=== PATIENT | male | born 1995 | race Hispanic/Latino ===

== ENCOUNTER 2018-12-13 16:28 | Inpatient (IN) | payer BC, OTHER ==
[~2018-12-13] VITALS: Ht 182.9 cm; Wt 119.7 kg
[2018-12-13] MEDS ORDERED: ONDANSETRON HCL 4 MG/2 ML VIAL ONE (18:05)
[2018-12-13] MEDS ORDERED: SODIUM CHLORIDE 0.9% 1000ML 2,000 ML IV ONE ×2 (18:06→19:43)
[2018-12-13 18:15] LABS: BASOPHILS % (AUTO) 0.3 % (0.0-5.0); EOSINOPHILS % (AUTO) 0.1 % (0.0-8.0); HEMATOCRIT 53.2 % (42-54); LYMPHOCYTES % (AUTO) 11.9 % (21.0-51.0); MEAN CORPUSCULAR HEMOGLOBIN 29.7 pg (27.0-33.0); MEAN CORPUSCULAR HGB CONC 33.8 g/dL (32.0-36.0); MONOCYTES % (AUTO) 5.1 % (3.0-13.0); NEUTROPHILS % (AUTO) 82.6 % (40.0-77.0); NUCLEATED RED BLOOD CELLS 0.1 % (0.0-0.19); PLATELET COUNT (AUTO) 225 K/uL (130-400); RED BLOOD CELL COUNT(AUTO) 6.05 MIL/uL (4.50-6.20); RED CELL DISTRIBUTION WIDTH 13.7 % (11.0-15.5); WHITE BLOOD COUNT (AUTO) 16.8 K/uL (4.8-10.8)
[2018-12-13 18:36] LABS: CREATININE 0.7 mg/dL (0.5-1.5); POTASSIUM 4.7 mmol/L (3.5-5.1)
[2018-12-13 18:40] LABS: ALBUMIN 4.2 g/dL (3.5-5.0); BILIRUBIN,TOTAL 0.6 mg/dL (0.2-1.0); TOTAL PROTEIN, SERUM 8.6 g/dL (6.0-8.3)
[2018-12-13 19:19] LABS: ABG BASE EXCESS -25.2 mmol/L (-2.0-3.0); ABG HCO3 4.5 mmol/L (21.0-28.0); ABG OXYGEN SATURATION 96.7 % (95.0-99.0); ABG PCO2 19 mmHg (35-48)
[2018-12-13 19:48] LABS: APPEARANCE,URINE Clear (CLEAR); BILIRUBIN,URINE Negative (NEGATIVE); COLOR,URINE Yellow (YELLOW); GLUCOSE, URINE (UA) >=1000 mg/dL (NEGATIVE); KETONES,URINE >=160 mg/dL (NEGATIVE); LEUKOCYTE ESTERASE ,URINE Negative (NEGATIVE); NITRATE,URINE Negative (NEGATIVE); OCCULT BLOOD,URINE Negative (NEGATIVE); PROTEIN,URINE POS 1+ mg/dL (NEGATIVE); UROBILINOGEN,URINE 0.2 mg/dL (0.2-1.0)
[2018-12-13] MEDS ORDERED: SODIUM BICARB [NEONATAL] 4.2% 10ML SYG ONE (19:58)
[2018-12-13 20:08] LABS: AMORPHOUS SEDIMENT,UR Few /LPF (None Seen); BACTERIA,URINE None Seen /HPF (None Seen); MUCUS,URINE Few LPF (None Seen); RBC,URINE 0-1 /HPF (0-1); SQUAMOUS EPITHELIAL CELL,UR 0-2 /HPF (0-2); WBC,URINE 0-1 /HPF (0-1)
[2018-12-13] MEDS ORDERED: SODIUM BICARB 8.4% 50ML SYRING 150 MEQ in DEXTROSE 5%-WATER 1,000 ML IV SCH (20:15)
[2018-12-13 20:31] LABS: ACETAMINOPHEN < 1 mcg/mL (10-29)
[2018-12-13 21:02] LABS: AMPHET/METH SCREEN,URINE NEGATIVE (NEGATIVE); BARBITURATE SCREEN, URINE NEGATIVE (NEGATIVE); BENZODIAZEPINES SCREEN,URINE NEGATIVE (NEGATIVE); CANNABINOID SCREEN,URINE NEGATIVE (NEGATIVE); COCAINE SCREEN,URINE NEGATIVE (NEGATIVE); OPIATE SCREEN,URINE NEGATIVE (NEGATIVE); PHENCYCLIDINE SCREEN,URINE NEGATIVE (NEGATIVE)
[2018-12-13] MEDS ORDERED: ZOSYN 3.375GM+NS 50ML 50 ML IV ONE (21:35)
[2018-12-13 22:07] LABS: CREATINE KINASE, TOTAL 36 U/L (21-232); MYOGLOBIN 16 ng/mL (10-92); TROPONIN I < 0.04 ng/mL (0.00-0.06)
[2018-12-13] MEDS ORDERED: MORPHINE SULFATE 2 MG/ML 1ML SYG IVP PRN (23:45)
[2018-12-13] MEDS ORDERED: GLUCAGON 1MG KIT 1 MG ML IM PRN (23:45)
[2018-12-13] MEDS ORDERED: DEXTROSE 50%-WATER 50 ML DISP.SYRIN IV PRN (23:45)
[2018-12-14] VITALS (19 sets, daily range): BP systolic 89–150; BP diastolic 37–99
[2018-12-14] MEDS ORDERED: INSULIN R NPO SSI SQ SCH
[2018-12-14] MEDS ORDERED: DAPA10TA PO (00:35)
[2018-12-14] MEDS ORDERED: METF-446 PO (00:35)
[2018-12-14] MEDS ORDERED: LOSA1TAB37 PO (00:35)
[2018-12-14] MEDS ORDERED: LEVO25TA54 PO (00:37)
[2018-12-14] MEDS ORDERED: AMIT25TA9 PO (00:39)
--- NOTE | 2018-12-14 01:40 | NUR ---
Daniel Paged Prasanna Fuchs from [facility] due to patient's sinus tachycardia of 140 and complaining of chest pain. Pending call back.
[2018-12-14] MEDS ORDERED: LACTATED RINGERS 1000ML 1,000 ML IV ONE ×2 (02:28→05:12)
--- NOTE | 2018-12-14 02:40 | NUR ---
Paged Prasanna Fuchs paged again due to supraventricular tachycardia in the 150's. He ordered ABG's. At 03:00 I called him to let him know the results. He ordered 2 Ampules of Sodium Bicarbinate, 1 liter bolus of NS, and to transfer the patient to the ICU.
[2018-12-14 02:45] LABS: ABG BASE EXCESS -26.7 mmol/L (-2.0-3.0); ABG HCO3 3.5 mmol/L (21.0-28.0); ABG OXYGEN SATURATION 97.8 % (95.0-99.0); ABG PCO2 < 17 mmHg (35-48)
[2018-12-14] MEDS ORDERED: SODIUM BICARB 50MEQ 50ML VIAL IV STA (03:00)
[2018-12-14] MEDS: SODIUM BICARB 50MEQ 50ML VIAL ONE ×2 (03:10→04:12)
--- NOTE | 2018-12-14 03:20 | NUR ---
report given to ICU nurse. patient moved to room 208 to continue care.
--- NOTE | 2018-12-14 03:26 | NUR ---
at 0326, I gave 2 ampules of sodium bicarbonate before I transferred the patient to ICU. had problem scanning and scanned at a later time.
--- NOTE | 2018-12-14 04:00 | NUR ---
RECEIVED FROM 3RD FLOOR VIA HOSPITAL BED. LETHARGIC, BUT AWAKE AND ORIENTED X3. SOB NOTED WITH EXERTION. SODIUM BICARB DRIP AND LR BOLUS INFUSING. CONNECTED TO BEDSIDE MONITOR. SINUS TACHYCARDIA HR UP TO 140BPM. BLE'S WITH SCDS. INSTRUCTED ON PLAN OF CARE. PATIENT'S CELL PHONE ON BEDSIDE TABLE. FULL ASSESSMENT COMPLETED.
--- NOTE | 2018-12-14 05:01 | NUR ---
CALLED Audrey ALLEN TO REPORT ABG RESULTS ONCE AGAIN- DRAWN AT 0242 AND ALSO REPORTED BMP RESULTS AND URINE KETONES >160 AND BLOOD KETONES 6.7. RECEIVED ORDERS TO TREAT FOR DKA. PATIENT REPORTS FEELING VERY SICK AND ACHY ALL OVER. SOB NOTED WITH CONVERSATION. INSTRUCTED ON ENERGY CONSERVATION MEASURES.
[2018-12-14] MEDS: ZOSYN 3.375GM+NS 50ML 50 ML IV SCH ×3 (05:13→20:58)
[2018-12-14] MEDS ORDERED: LACTATED RINGERS 1000ML IV SCH (05:15)
[2018-12-14] MEDS ORDERED: PHARMACY COMMUNICATION MISC SCH ×4 (05:15→22:00)
[2018-12-14] MEDS ORDERED: DEXTROSE 5%-LACTATED RINGERS 1,000 ML IV SCH (05:15)
[2018-12-14 05:32] LABS: HEMATOCRIT 53.1 % (42-54); MEAN CORPUSCULAR HEMOGLOBIN 29.2 pg (27.0-33.0); MEAN CORPUSCULAR HGB CONC 33.1 g/dL (32.0-36.0); MEAN CORPUSCULAR VOLUME 88.3 fL (79-99); NUCLEATED RED BLOOD CELLS 0.1 % (0.0-0.19); PLATELET COUNT (AUTO) 191 K/uL (130-400); RED BLOOD CELL COUNT(AUTO) 6.02 MIL/uL (4.50-6.20); RED CELL DISTRIBUTION WIDTH 13.6 % (11.0-15.5); WHITE BLOOD COUNT (AUTO) 18.9 K/uL (4.8-10.8)
[2018-12-14 05:49] LABS: CREATININE 1.2 mg/dL (0.5-1.5); MAGNESIUM 1.8 mg/dL (1.80-2.40); PHOSPHORUS 3.6 mg/dL (2.5-4.9); POTASSIUM 3.6 mmol/L (3.5-5.1)
[2018-12-14 06:23] LABS: ABG BASE EXCESS -23.5 mmol/L (-2.0-3.0); ABG HCO3 4.7 mmol/L (21.0-28.0); ABG OXYGEN SATURATION 97.7 % (95.0-99.0); ABG PCO2 17 mmHg (35-48)
--- NOTE | 2018-12-14 06:37 | NUR ---
REPORTED AM LABS AND ABG RESULTS TO Audrey ALLEN FOR [facility] NO NEW ORDERS RECEIVED.
[2018-12-14] MEDS ORDERED: POTASSIUM CHLORIDE 10% ELIXIR 20 MEQ/15 ML UDCUP PO PRN (07:15)
[2018-12-14] MEDS ORDERED: LIDOCAINE HCL-MPF 1% 2ML VIAL IV PRN (07:15)
[2018-12-14] MEDS ORDERED: POTASSIUM CHLORIDE 20 MEQ ERTAB PO PRN (07:15)
[2018-12-14] MEDS ORDERED: D5W-1/2 NS/20MEQ KCL 1,000 ML IV SCH (07:45)
[2018-12-14] MEDS: SODIUM CHLORIDE 0.9% 1000ML 1,000 ML IV SCH ×4 (07:51→20:58)
[2018-12-14] MEDS: FAMOTIDINE/PF 20 MG/2 ML VIAL IV SCH ×2 (07:51→20:58)
[2018-12-14 12:53] LABS: CREATININE 1.3 mg/dL (0.5-1.5)
[2018-12-14] MEDS ORDERED: SODIUM BICARB 50MEQ 50ML VIAL ONE ×4 (13:01→19:28)
[2018-12-14] MEDS ORDERED: SODIUM BICARB 8.4% 50ML SYRING 150 MEQ in SODIUM CHLORIDE 0.9% 1000ML 1,000 ML IV SCH (13:15)
[2018-12-14 13:17] LABS: ABG BASE EXCESS -14.8 mmol/L (-2.0-3.0); ABG HCO3 8.4 mmol/L (21.0-28.0); ABG PCO2 17 mmHg (35-48)
[2018-12-14] MEDS ORDERED: SODIUM BICARB 50MEQ 50ML VIAL IV SCH ×2 (13:18→13:30)
[2018-12-14] MEDS ORDERED: LIDOCAINE HCL 1% 20 ML VIAL ONE (13:25)
--- NOTE | 2018-12-14 13:28 | NUR ---
D/C PLAN CM spoke to pts mother regarding d/c planning. Pt xochitl in procedure. Pt is ind. and lives with mother. Mother assists in care as needed. States pt is newly established with Dr. Magdi Villarreal. Reports pt was previously ind. with ADL's. Plan to home. CM to f/u. Addendum: 12/14/18 at 1329 by AKUA BENNETT CM Amended: Links added.
[2018-12-14] MEDS ORDERED: DEXTROSE 50%-WATER 25 GM/50 ML VIAL IV ONE (13:30)
[2018-12-14] MEDS ORDERED: DEXTROSE 10%-WATER 1,000 ML IV SCH (13:30)
[2018-12-14] MEDS ORDERED: DEXTROSE 50%-WATER 25 GM/50 ML VIAL ONE (13:33)
[2018-12-14] MEDS: ONDANSETRON HCL 4 MG/2 ML VIAL IVP PRN (13:43)
[2018-12-14 14:01] LABS: ABG HCO3 9.9 mmol/L (21.0-28.0); ABG OXYGEN SATURATION 97.3 % (95.0-99.0); ABG PCO2 18 mmHg (35-48)
[2018-12-14 15:03] LABS: ABG BASE EXCESS -14.4 mmol/L (-2.0-3.0); ABG HCO3 9.7 mmol/L (21.0-28.0); ABG OXYGEN SATURATION 97.3 % (95.0-99.0); ABG PCO2 21 mmHg (35-48)
[2018-12-14] MEDS ORDERED: MORPHINE SULFATE 2 MG/ML 1ML SYG IVP PRN (15:15)
[2018-12-14] MEDS ORDERED: SODIUM BICARB 50MEQ 50ML VIAL IV ONE (15:15)
[2018-12-14 15:57] LABS: ABG BASE EXCESS -4.5 mmol/L (-2.0-3.0); ABG HCO3 16.2 mmol/L (21.0-28.0); ABG OXYGEN SATURATION 98.4 % (95.0-99.0); ABG PCO2 21 mmHg (35-48)
[2018-12-14] MEDS ORDERED: FUROSEMIDE 10 MG/ML 2ML VIAL ONE (17:20)
[2018-12-14] MEDS ORDERED: MORPHINE SULFATE 2 MG/ML 1ML SYG IVP ONE (17:30)
[2018-12-14] MEDS ORDERED: FUROSEMIDE 10 MG/ML 4ML VIAL IV ONE (17:30)
[2018-12-14 17:32] LABS: MAGNESIUM 1.4 mg/dL (1.80-2.40); PHOSPHORUS 0.5 mg/dL (2.5-4.9)
[2018-12-14 17:34] LABS: POTASSIUM 1.8 mmol/L (3.5-5.1)
[2018-12-14] MEDS: POTASSIUM CHLORIDE 20MEQ/100ML 100 ML IV PRN ×7 (17:42→23:07)
[2018-12-14] MEDS: WATER IV SCH (19:01)
[2018-12-14] MEDS: DEXTROSE 10% IV SCH (19:01)
[2018-12-14] MEDS: POTASSIUM CHLORIDE IV SCH (19:01)
[2018-12-14] MEDS: INSULIN REGULAR, HUMAN 3ML 100 UNIT in SODIUM CHLORIDE 0.9% 99 ML IV PRN ×2 (19:06)
[2018-12-14 19:14] LABS: ABG BASE EXCESS -8.5 mmol/L (-2.0-3.0); ABG OXYGEN SATURATION 99.1 % (95.0-99.0); ABG PCO2 31 mmHg (35-48)
[2018-12-14] MEDS ORDERED: POTASSIUM PHOSPHATE 30 MMOL in SODIUM CHLORIDE 0.9% 250 ML IV SCH (19:15)
[2018-12-14 20:11] LABS: CREATININE 1.2 mg/dL (0.5-1.5); MAGNESIUM 2.6 mg/dL (1.80-2.40)
[2018-12-14 20:45] LABS: ABG BASE EXCESS -7.5 mmol/L (-2.0-3.0); ABG HCO3 16.8 mmol/L (21.0-28.0); ABG OXYGEN SATURATION 97.3 % (95.0-99.0); ABG PCO2 31 mmHg (35-48)
[2018-12-15] VITALS (24 sets, daily range): BP systolic 96–142; BP diastolic 61–84
[2018-12-15] MEDS: POTASSIUM CHLORIDE 20MEQ/100ML 100 ML IV PRN ×16 (00:22→23:19)
[2018-12-15 00:37] LABS: CREATININE 1.1 mg/dL (0.5-1.5); MAGNESIUM 2.4 mg/dL (1.80-2.40); PHOSPHORUS 1.3 mg/dL (2.5-4.9)
--- NOTE | 2018-12-15 00:37 | NUR ---
CONTINUES ON CPAP FOR SOB & TACHYPNEA. FREQUENTLY REQUESTS WATER. INSTRUCTED HIM & HIS MOTHER ON HIGH RISK OF ASPIRATION & RELATED COMPLICATIONS D/T DYSPNEA & TACHYPNEA. PT CONTINUES TO REQUEST WATER. PROVIDED WITH 4OZ OF WATER AND REPLACED CPAP. Addendum: 12/15/18 at 0040 by MARIA C ALFONSO RN RN Amended: Links added.
[2018-12-15 00:43] LABS: POTASSIUM 2.6 mmol/L (3.5-5.1)
[2018-12-15] MEDS: WATER IV SCH ×3 (03:54→23:19)
[2018-12-15] MEDS: DEXTROSE 10% IV SCH ×3 (03:54→23:19)
[2018-12-15] MEDS: POTASSIUM CHLORIDE IV SCH ×3 (03:54→23:19)
[2018-12-15 04:29] LABS: CREATININE 1.2 mg/dL (0.5-1.5); MAGNESIUM 2.4 mg/dL (1.80-2.40); PHOSPHORUS 1.3 mg/dL (2.5-4.9); POTASSIUM 3.2 mmol/L (3.5-5.1)
[2018-12-15] MEDS: ZOSYN 3.375GM+NS 50ML 50 ML IV SCH ×3 (04:50→21:03)
[2018-12-15] MEDS ORDERED: PHARMACY COMMUNICATION MISC SCH ×2 (07:00→07:15)
[2018-12-15] MEDS: SODIUM CHLORIDE 0.9% 1000ML 1,000 ML IV SCH ×2 (07:18→16:45)
[2018-12-15 07:33] LABS: ABG BASE EXCESS -11.2 mmol/L (-2.0-3.0); ABG HCO3 14.6 mmol/L (21.0-28.0); ABG OXYGEN SATURATION 98.2 % (95.0-99.0); ABG PCO2 33 mmHg (35-48)
[2018-12-15] MEDS: POTASSIUM PHOS 15 mMOL+NS250ML 250 ML IV PRN (07:38)
[2018-12-15 08:38] LABS: CREATININE 1.2 mg/dL (0.5-1.5); MAGNESIUM 2.4 mg/dL (1.80-2.40); PHOSPHORUS 1.1 mg/dL (2.5-4.9); POTASSIUM 3.5 mmol/L (3.5-5.1)
[2018-12-15] MEDS: FAMOTIDINE/PF 20 MG/2 ML VIAL IV SCH ×2 (09:22→20:09)
[2018-12-15] MEDS ORDERED: POTASSIUM PHOSPHATE 30 MMOL in SODIUM CHLORIDE 0.9% 250 ML IV SCH (09:30)
[2018-12-15] MEDS: ONDANSETRON HCL 4 MG/2 ML VIAL IVP PRN ×2 (09:40→18:33)
[2018-12-15] MEDS: MORPHINE SULFATE 2 MG/ML 1ML SYG IVP PRN ×2 (09:41→18:28)
[2018-12-15] MEDS: ACETAMINOPHEN 325 MG TAB PO PRN (11:45)
[2018-12-15 12:37] LABS: MAGNESIUM 2.1 mg/dL (1.80-2.40); PHOSPHORUS 1.5 mg/dL (2.5-4.9); POTASSIUM 3.8 mmol/L (3.5-5.1)
[2018-12-15 14:32] LABS: INR 0.97 (0.85-1.15); PARTIAL THROMBOPLASTIN TIME 25.9 SEC (26.3-35.5); PROTHROMBIN TIME 10.2 SEC (9.6-11.6)
[2018-12-15 16:43] LABS: MAGNESIUM 2.1 mg/dL (1.80-2.40); PHOSPHORUS 2.9 mg/dL (2.5-4.9); POTASSIUM 3.6 mmol/L (3.5-5.1)
--- NOTE | 2018-12-15 19:30 | NUR ---
ASSESSMENT PT RESTING IN BED, IV FLUIDS INFUSING WITHOUT DIFFICULTY. MOTHER AT BEDSIDE. DKA PROTOCOL, BLOOD SUGARS Q1H, SEE FLOW SHEET. ASSESSMENT COMPLETED, SEE FLOW SHEET. BRAXTON MICHELLE TO BSD. VILLAGOMEZ REVIEWED AND WITHIN REACH. WHITE BOARD UP-DATED.
[2018-12-15 20:33] LABS: POTASSIUM 3.7 mmol/L (3.5-5.1)
[2018-12-15 20:48] LABS: BASOPHILS % (AUTO) 0.3 % (0.0-5.0); EOSINOPHILS % (AUTO) 0.1 % (0.0-8.0); HEMATOCRIT 42.2 % (42-54); MEAN CORPUSCULAR HEMOGLOBIN 29.1 pg (27.0-33.0); MEAN CORPUSCULAR HGB CONC 33.9 g/dL (32.0-36.0); MEAN CORPUSCULAR VOLUME 85.8 fL (79-99); MONOCYTES % (AUTO) 10.1 % (3.0-13.0); NEUTROPHILS % (AUTO) 66.5 % (40.0-77.0); PLATELET COUNT (AUTO) 120 K/uL (130-400); RED BLOOD CELL COUNT(AUTO) 4.91 MIL/uL (4.50-6.20); RED CELL DISTRIBUTION WIDTH 14.1 % (11.0-15.5); WHITE BLOOD COUNT (AUTO) 9.4 K/uL (4.8-10.8)
[2018-12-15 21:27] LABS: ABG HCO3 15.8 mmol/L (21.0-28.0); ABG OXYGEN SATURATION 98.3 % (95.0-99.0); ABG PCO2 35 mmHg (35-48)
--- NOTE | 2018-12-15 21:42 | NUR ---
[facility] ANSWERING SERVICE RETURN CALL PENDING FROM DANK SAMANIEGO
--- NOTE | 2018-12-15 21:45 | NUR ---
BASKET TURNER BASKET TURNER MADE AWARE OF PT STATUS, LAB VALUES, ANION GAP, GTTS. ORDERS RECEIVED TO ADD TSH TO AM LABS, ABG AT 0T 0600 AND 2 AMPS NA HCO3 GIVEN
[2018-12-15] MEDS ORDERED: SODIUM BICARB 8.4% 50ML SYRINGE IVP SCH (22:00)
[2018-12-15] MEDS ORDERED: SODIUM BICARB 50MEQ 50ML VIAL ONE (22:01)
[2018-12-16] VITALS (31 sets, daily range): BP systolic 124–151; BP diastolic 66–90
[2018-12-16 00:38] LABS: CREATININE 0.9 mg/dL (0.5-1.5); MAGNESIUM 1.9 mg/dL (1.80-2.40); POTASSIUM 3.5 mmol/L (3.5-5.1)
[2018-12-16] MEDS: POTASSIUM CHLORIDE 20MEQ/100ML 100 ML IV PRN ×13 (00:46→23:36)
[2018-12-16] MEDS ORDERED: SODIUM CHLORIDE 0.9% 250 ML IV ONE (00:52)
[2018-12-16] MEDS: SODIUM CHLORIDE 0.9% 1000ML 1,000 ML IV SCH ×3 (01:17→23:36)
[2018-12-16] MEDS: MAGNESIUM 2GM PREMIX 50ML 50 ML IV PRN ×3 (01:19→22:20)
--- NOTE | 2018-12-16 03:29 | NUR ---
ASSESSMENT PT RESTING IN BED, IV FLUIDS INFUSING WITHOUT DIFFICULTY. DKA PROTOCOL, BLOOD SUGARS Q1H, SEE FLOW SHEET. ASSESSMENT COMPLETED, SEE FLOW SHEET. LIMON CATH TO BSD. CALLBELL WITHIN REACH. WHITE BOARD UP-DATED.
[2018-12-16] MEDS: MORPHINE SULFATE 2 MG/ML 1ML SYG IVP PRN (03:39)
[2018-12-16 04:06] LABS: HEMATOCRIT 42.5 % (42-54); MEAN CORPUSCULAR HEMOGLOBIN 29.8 pg (27.0-33.0); MEAN CORPUSCULAR HGB CONC 34.5 g/dL (32.0-36.0); MEAN CORPUSCULAR VOLUME 86.4 fL (79-99); PLATELET COUNT (AUTO) 116 K/uL (130-400); RED BLOOD CELL COUNT(AUTO) 4.92 MIL/uL (4.50-6.20); RED CELL DISTRIBUTION WIDTH 13.7 % (11.0-15.5)
[2018-12-16 04:14] LABS: BAND NEUTROPHILS % (MANUAL) 3 % (0-2); HEMOGLOBIN A1C 11.2 % (4.0-6.0); LYMPHOCYTES % (MANUAL) 22 % (22-44); MONOCYTES % (MANUAL) 7 % (2-9); SEGMENTED NEUTROPHILS % 68 % (40-70)
[2018-12-16 04:15] LABS: MAN.DIFF COMMENT-IMPRESSION MANUAL DIFFERENTIAL; PLATELET MORPHOLOGY COMMENT ADEQUATE
[2018-12-16 04:25] LABS: MAGNESIUM 2.2 mg/dL (1.80-2.40); POTASSIUM 3.6 mmol/L (3.5-5.1); THYROID STIMULATING HORMONE 0.71 uIU/mL (0.36-3.74)
--- NOTE | 2018-12-16 04:53 | NUR ---
D/C RIGHT FEMORAL LINE D/C RIGHT FEMORAL LINE PER ORDERS. PRESSURE HELD X20 MIN, HEMOSTASIS OBTAINED, PRESSURE DRESSING APPLIED, TOLERATED WITHOUT DIFFICULTY
[2018-12-16] MEDS ORDERED: SODIUM BICARB 50MEQ 50ML VIAL ONE ×2 (05:02→06:36)
[2018-12-16] MEDS: ZOSYN 3.375GM+NS 50ML 50 ML IV SCH ×3 (05:16→22:20)
[2018-12-16 05:42] LABS: ABG BASE EXCESS -9.1 mmol/L (-2.0-3.0); ABG HCO3 16.3 mmol/L (21.0-28.0); ABG OXYGEN SATURATION 98.4 % (95.0-99.0); ABG PCO2 34 mmHg (35-48)
--- NOTE | 2018-12-16 06:00 | NUR ---
[facility] ANSWERING SERVICE ANSWERING SERVICE CALLED, RETURN CALL PENDING FROM DANK GIBBONS NP RE: morning labs
[2018-12-16] MEDS: LEVOTHYROXINE 100 MCG VIAL IV SCH (06:30)
[2018-12-16] MEDS ORDERED: SODIUM BICARB 50MEQ 50ML VIAL IV SCH (06:30)
--- NOTE | 2018-12-16 06:32 | NUR ---
SENIOR SPECIALIST MADE AWARE OF CURRENT STATUS, SEE ORDERS RECEIVED.
[2018-12-16] MEDS ORDERED: LEVOTHYROXINE 100 MCG IV ONE (06:38)
[2018-12-16 08:11] LABS: CREATININE 0.9 mg/dL (0.5-1.5); MAGNESIUM 1.9 mg/dL (1.80-2.40); POTASSIUM 3.9 mmol/L (3.5-5.1)
[2018-12-16] MEDS: FAMOTIDINE/PF 20 MG/2 ML VIAL IV SCH ×2 (08:40→22:20)
[2018-12-16] MEDS: POTASSIUM CHLORIDE IV SCH ×2 (09:38→20:00)
[2018-12-16] MEDS: WATER IV SCH ×2 (09:38→20:00)
[2018-12-16] MEDS: DEXTROSE 10% IV SCH ×2 (09:38→20:00)
[2018-12-16] MEDS ORDERED: LACTATED RINGERS 1000ML IV SCH (10:15)
[2018-12-16] MEDS ORDERED: LACTATED RINGERS 1000ML 1,000 ML IV ONE (10:22)
[2018-12-16] MEDS: LACTATED RINGERS 1000ML 1,000 ML IV SCH ×3 (10:30→12:21)
[2018-12-16 10:57] LABS: ABG BASE EXCESS -5.7 mmol/L (-2.0-3.0); ABG HCO3 18.6 mmol/L (21.0-28.0); ABG OXYGEN SATURATION 97.5 % (95.0-99.0); ABG PCO2 33 mmHg (35-48)
[2018-12-16] MEDS: ACETAMINOPHEN 325 MG TAB PO PRN (12:25)
[2018-12-16] MEDS: INSULIN REGULAR, HUMAN 3ML 100 UNIT in SODIUM CHLORIDE 0.9% 99 ML IV PRN ×2 (12:31)
[2018-12-16 12:32] LABS: CREATININE 0.9 mg/dL (0.5-1.5); PHOSPHORUS 1.5 mg/dL (2.5-4.9); POTASSIUM 3.3 mmol/L (3.5-5.1)
[2018-12-16] MEDS: POTASSIUM PHOS 15 mMOL+NS250ML 250 ML IV PRN ×2 (12:41→22:14)
--- NOTE | 2018-12-16 14:49 | NUR ---
PATIENT IS SCHEDULE FOR CT-SCAN THIS PM.WILL ATTEMPT TO SEE TOMORROW FOR PT EVALUATION. Addendum: 12/16/18 at 1450 by MACI AMARAL, PT PT Amended: Links added.
--- NOTE | 2018-12-16 15:44 | NUR ---
LOW-INCOME PACKET GAVE LOW INCOME PACKET TO PATIENT AND MOTHER, ANSWERED DIABETIC RELATED QUESTIONS. PATIENT AND MOTHER VERBALIZED UNDERSTANDING OF PACKET.
[2018-12-16 16:35] LABS: CREATININE 0.9 mg/dL (0.5-1.5); PHOSPHORUS 1.9 mg/dL (2.5-4.9); POTASSIUM 3.7 mmol/L (3.5-5.1)
[2018-12-16] MEDS ORDERED: PHARMACY COMMUNICATION MISC SCH (19:30)
[2018-12-16 21:43] LABS: CREATININE 0.8 mg/dL (0.5-1.5); MAGNESIUM 1.8 mg/dL (1.80-2.40); PHOSPHORUS 2.3 mg/dL (2.5-4.9); POTASSIUM 3.6 mmol/L (3.5-5.1)
[2018-12-17] VITALS (24 sets, daily range): BP systolic 113–163; BP diastolic 54–99
[2018-12-17 01:35] LABS: CREATININE 0.8 mg/dL (0.5-1.5); MAGNESIUM 2.2 mg/dL (1.80-2.40); PHOSPHORUS 2.8 mg/dL (2.5-4.9); POTASSIUM 3.7 mmol/L (3.5-5.1)
[2018-12-17] MEDS: POTASSIUM CHLORIDE 20MEQ/100ML 100 ML IV PRN ×8 (01:55→18:44)
[2018-12-17 03:46] LABS: BASOPHILS % (AUTO) 0.4 % (0.0-5.0); EOSINOPHILS % (AUTO) 0.3 % (0.0-8.0); MEAN CORPUSCULAR HEMOGLOBIN 29.5 pg (27.0-33.0); MEAN CORPUSCULAR HGB CONC 34.4 g/dL (32.0-36.0); MEAN CORPUSCULAR VOLUME 85.8 fL (79-99); MONOCYTES % (AUTO) 11.5 % (3.0-13.0); NEUTROPHILS % (AUTO) 49.8 % (40.0-77.0); PLATELET COUNT (AUTO) 119 K/uL (130-400); RED BLOOD CELL COUNT(AUTO) 4.67 MIL/uL (4.50-6.20); RED CELL DISTRIBUTION WIDTH 13.8 % (11.0-15.5); WHITE BLOOD COUNT (AUTO) 5.6 K/uL (4.8-10.8)
[2018-12-17 04:01] LABS: POTASSIUM 3.9 mmol/L (3.5-5.1)
[2018-12-17 04:02] LABS: ALBUMIN 2.7 g/dL (3.5-5.0); BILIRUBIN,TOTAL 1.3 mg/dL (0.2-1.0); CREATININE 0.8 mg/dL (0.5-1.5); TOTAL PROTEIN, SERUM 6.1 g/dL (6.0-8.3)
[2018-12-17 04:20] LABS: PHOSPHORUS 2.9 mg/dL (2.5-4.9)
[2018-12-17] MEDS: ZOSYN 3.375GM+NS 50ML 50 ML IV SCH ×3 (05:05→21:34)
[2018-12-17] MEDS: LEVOTHYROXINE 100 MCG VIAL IV SCH (05:06)
[2018-12-17 05:44] LABS: ABG BASE EXCESS -3.9 mmol/L (-2.0-3.0); ABG HCO3 19.3 mmol/L (21.0-28.0); ABG OXYGEN SATURATION 96.5 % (95.0-99.0); ABG PCO2 31 mmHg (35-48)
[2018-12-17] MEDS: DEXTROSE 10% IV SCH ×2 (06:21→16:20)
[2018-12-17] MEDS: POTASSIUM CHLORIDE IV SCH ×2 (06:21→16:20)
[2018-12-17] MEDS: WATER IV SCH ×2 (06:21→16:20)
[2018-12-17] MEDS: MORPHINE SULFATE 2 MG/ML 1ML SYG IVP PRN (07:26)
[2018-12-17] MEDS: INSULIN REGULAR, HUMAN 3ML 100 UNIT in SODIUM CHLORIDE 0.9% 99 ML IV PRN ×2 (08:13)
[2018-12-17 08:36] LABS: CREATININE 0.8 mg/dL (0.5-1.5); MAGNESIUM 1.8 mg/dL (1.80-2.40); PHOSPHORUS 2.3 mg/dL (2.5-4.9); POTASSIUM 3.6 mmol/L (3.5-5.1)
[2018-12-17] MEDS: MAGNESIUM 2GM PREMIX 50ML 50 ML IV PRN ×2 (08:54→17:27)
[2018-12-17] MEDS: SODIUM CHLORIDE 0.9% 1000ML 1,000 ML IV SCH (08:55)
[2018-12-17] MEDS: FAMOTIDINE/PF 20 MG/2 ML VIAL IV SCH ×2 (08:55→21:34)
[2018-12-17] MEDS: POTASSIUM PHOS 15 mMOL+NS250ML 250 ML IV PRN ×2 (09:12→17:45)
[2018-12-17] MEDS ORDERED: LOSA50TA64 PO (11:16)
[2018-12-17] MEDS ORDERED: ICOS1CAP PO (11:16)
[2018-12-17] MEDS ORDERED: LOSARTAN 50 MG TABLET PO SCH (11:30)
[2018-12-17 12:37] LABS: CREATININE 0.8 mg/dL (0.5-1.5); MAGNESIUM 2.2 mg/dL (1.80-2.40); PHOSPHORUS 2.6 mg/dL (2.5-4.9); POTASSIUM 3.9 mmol/L (3.5-5.1)
[2018-12-17] MEDS ORDERED: HYDRALAZINE HCL 20 MG/ML VIAL IV PRN (15:00)
[2018-12-17 17:06] LABS: CREATININE 0.8 mg/dL (0.5-1.5); MAGNESIUM 1.9 mg/dL (1.80-2.40); PHOSPHORUS 2.9 mg/dL (2.5-4.9); POTASSIUM 3.7 mmol/L (3.5-5.1)
--- NOTE | 2018-12-17 20:00 | NUR ---
ASSESSMENT RESTING IN BED. DENIES PAIN. REMAINS ON INSULIN DRIP. ASSESSMENT COMPLETED SEE FLOW SHEET. MOTHER AT BEDSIDE AND QUESTIONS ANSWERED. ENCOURAGED TO CALL FOR WANTS OR NEEDS. Addendum: 12/17/18 at 2207 by ABIMBOLA MILES RN RN Amended: Links added.
[2018-12-17 21:42] LABS: CREATININE 0.7 mg/dL (0.5-1.5); MAGNESIUM 2.4 mg/dL (1.80-2.40); PHOSPHORUS 3.9 mg/dL (2.5-4.9); POTASSIUM 4.1 mmol/L (3.5-5.1)
[2018-12-18] VITALS (23 sets, daily range): BP systolic 90–142; BP diastolic 49–91
[2018-12-18] MEDS: INSULIN REGULAR, HUMAN 3ML 100 UNIT in SODIUM CHLORIDE 0.9% 99 ML IV PRN ×4 (00:05→14:41)
[2018-12-18 00:55] LABS: CREATININE 0.7 mg/dL (0.5-1.5); MAGNESIUM 2.1 mg/dL (1.80-2.40); PHOSPHORUS 3.8 mg/dL (2.5-4.9); POTASSIUM 3.6 mmol/L (3.5-5.1)
[2018-12-18] MEDS: POTASSIUM CHLORIDE 20MEQ/100ML 100 ML IV PRN ×2 (02:08→21:32)
[2018-12-18] MEDS: DEXTROSE 10% IV SCH ×3 (02:11→21:12)
[2018-12-18] MEDS: WATER IV SCH ×3 (02:11→21:12)
[2018-12-18] MEDS: POTASSIUM CHLORIDE IV SCH ×3 (02:11→21:12)
[2018-12-18 04:57] LABS: CREATININE 0.7 mg/dL (0.5-1.5); PHOSPHORUS 3.6 mg/dL (2.5-4.9); POTASSIUM 4.2 mmol/L (3.5-5.1)
[2018-12-18] MEDS: LEVOTHYROXINE 100 MCG VIAL IV SCH (06:10)
[2018-12-18] MEDS: ZOSYN 3.375GM+NS 50ML 50 ML IV SCH ×3 (06:10→21:32)
[2018-12-18 08:44] LABS: CREATININE 0.8 mg/dL (0.5-1.5); MAGNESIUM 1.8 mg/dL (1.80-2.40); PHOSPHORUS 2.7 mg/dL (2.5-4.9); POTASSIUM 4.3 mmol/L (3.5-5.1)
[2018-12-18 08:55] LABS: APPEARANCE,URINE Clear (CLEAR); BILIRUBIN,URINE Negative (NEGATIVE); COLOR,URINE Yellow (YELLOW); GLUCOSE, URINE (UA) >=1000 mg/dL (NEGATIVE); KETONES,URINE >=160 mg/dL (NEGATIVE); LEUKOCYTE ESTERASE ,URINE Trace (NEGATIVE); NITRATE,URINE Negative (NEGATIVE); OCCULT BLOOD,URINE Negative (NEGATIVE); PH,URINE 5.5 (5.0-8.0); PROTEIN,URINE Negative (NEGATIVE)
[2018-12-18] MEDS: LOSARTAN 50 MG TABLET PO SCH (09:12)
[2018-12-18] MEDS: FAMOTIDINE/PF 20 MG/2 ML VIAL IV SCH ×2 (09:12→21:12)
[2018-12-18 09:26] LABS: BACTERIA,URINE None Seen /HPF (None Seen); RBC,URINE 0-1 /HPF (0-1)
[2018-12-18 09:27] LABS: SQUAMOUS EPITHELIAL CELL,UR 0-2 /HPF (0-2)
[2018-12-18 12:39] LABS: CREATININE 0.7 mg/dL (0.5-1.5); MAGNESIUM 1.9 mg/dL (1.80-2.40); POTASSIUM 4.2 mmol/L (3.5-5.1)
[2018-12-18 16:21] LABS: CREATININE 0.7 mg/dL (0.5-1.5); MAGNESIUM 1.8 mg/dL (1.80-2.40); PHOSPHORUS 2.9 mg/dL (2.5-4.9); POTASSIUM 4.1 mmol/L (3.5-5.1)
[2018-12-18 20:30] LABS: CREATININE 0.7 mg/dL (0.5-1.5); MAGNESIUM 1.8 mg/dL (1.80-2.40); POTASSIUM 3.5 mmol/L (3.5-5.1)
[2018-12-18] MEDS: MAGNESIUM 2GM PREMIX 50ML 50 ML IV PRN (21:33)
[2018-12-19] VITALS (23 sets, daily range): BP systolic 87–143; BP diastolic 47–89
[2018-12-19 00:29] LABS: CREATININE 0.7 mg/dL (0.5-1.5); MAGNESIUM 2.2 mg/dL (1.80-2.40); PHOSPHORUS 4.4 mg/dL (2.5-4.9); POTASSIUM 4.1 mmol/L (3.5-5.1)
[2018-12-19] MEDS: INSULIN REGULAR, HUMAN 3ML 100 UNIT in SODIUM CHLORIDE 0.9% 99 ML IV PRN ×4 (01:08→10:03)
[2018-12-19 04:24] LABS: CREATININE 0.8 mg/dL (0.5-1.5); PHOSPHORUS 4.3 mg/dL (2.5-4.9); POTASSIUM 3.8 mmol/L (3.5-5.1); TOTAL PROTEIN, SERUM 7.1 g/dL (6.0-8.3)
[2018-12-19] MEDS: ZOSYN 3.375GM+NS 50ML 50 ML IV SCH ×2 (05:42→13:14)
[2018-12-19] MEDS: LEVOTHYROXINE 100 MCG VIAL IV SCH (05:42)
[2018-12-19] MEDS: WATER IV SCH (07:06)
[2018-12-19] MEDS: DEXTROSE 10% IV SCH (07:06)
[2018-12-19] MEDS: POTASSIUM CHLORIDE IV SCH (07:06)
[2018-12-19 07:23] LABS: APPEARANCE,URINE Clear (CLEAR); BILIRUBIN,URINE Negative (NEGATIVE); COLOR,URINE Yellow (YELLOW); GLUCOSE, URINE (UA) >=1000 mg/dL (NEGATIVE); KETONES,URINE 40 mg/dL (NEGATIVE); LEUKOCYTE ESTERASE ,URINE Trace (NEGATIVE); NITRATE,URINE Negative (NEGATIVE); OCCULT BLOOD,URINE Negative (NEGATIVE); PH,URINE 6.5 (5.0-8.0); PROTEIN,URINE Negative (NEGATIVE)
[2018-12-19 07:39] LABS: BACTERIA,URINE Rare /HPF (None Seen); RBC,URINE 0-1 /HPF (0-1); SQUAMOUS EPITHELIAL CELL,UR Rare /HPF (0-2)
[2018-12-19 08:43] LABS: CREATININE 0.7 mg/dL (0.5-1.5); MAGNESIUM 1.8 mg/dL (1.80-2.40); POTASSIUM 4.1 mmol/L (3.5-5.1)
[2018-12-19] MEDS: LOSARTAN 50 MG TABLET PO SCH (08:57)
[2018-12-19] MEDS: FAMOTIDINE/PF 20 MG/2 ML VIAL IV SCH ×2 (08:57→21:42)
[2018-12-19] MEDS: MAGNESIUM 2GM PREMIX 50ML 50 ML IV PRN (09:03)
[2018-12-19] MEDS ORDERED: INSULIN GLARGINE 100 UNITS/ML 10 ML VIAL SQ SCH ×2 (11:45→21:00)
[2018-12-19] MEDS: INSULIN HUMULIN R 100 UNIT/ML 3ML SQ SCH ×3 (13:17→21:59)
[2018-12-19] MEDS ORDERED: INSULIN HUMULIN R 100 UNIT/ML 3ML SQ SCH (16:30)
--- NOTE | 2018-12-19 16:36 | NUR ---
RD NOTIFICATION Dx: Acute Colitis. Hx: DM, HTN, Hypothyroid, Morbid Obese. Diet: NPO; pending diet order. LBM: 12/19. Pt stated he is hungry and has not eaten in several days. Prior to admission pt was not taking DM medications due to economical constraints, however he started taking DM medications two weeks ago and began to have adverse side effects leading him to [facility]. Pt is familiar with DM diet and medications due to his brother having type [address] provided DM diet and nutrition education and encouraged pt to make small changes in his diet. Pt seemed to understand RD recommendations and verbalized understanding. Education materials provided. RD recommends advance diet as tolerated when medically feasible to clear liquids. RD provided DM diet and nutrition education. Materials provided. RD will monitor and follow up as needed. Joselin Fernandez MS, RDN Addendum: 12/19/18 at [address] RD Amended: Links added.
--- NOTE | 2018-12-19 16:37 | NUR ---
DIET EDUCATION Prior to admission pt was not taking DM medications due to economical constraints, however he started taking DM medications two weeks ago and began to have adverse side effects leading him to [facility]. Pt is familiar with DM diet and medications due to his brother having type 1 DM. ELBERT provided DM diet and nutrition education and encouraged pt to make small changes in his diet. Pt seemed to understand RD recommendations and verbalized understanding. Education materials provided. Addendum: 12/19/18 at [address] RD Amended: Links added.
[2018-12-19 17:03] LABS: CREATININE 0.7 mg/dL (0.5-1.5); PHOSPHORUS 3.2 mg/dL (2.5-4.9); POTASSIUM 4.7 mmol/L (3.5-5.1)
--- NOTE | 2018-12-19 18:29 | NUR ---
MD ROUNDS DR. BISMARK SAMPSON IN TO SEE PATIENT. MD UPDATED ON STATUS. NEW ORDERS RECEIVED TO BE CARRIED OUT.
[2018-12-19] MEDS: LACTOBACILLUS RHAMNOSUS GG 1 EACH CAP.SPRINK PO SCH (21:42)
[2018-12-19] MEDS: INSULIN GLARGINE 100 UNITS/ML 10 ML VIAL SQ SCH (21:52)
[2018-12-20] VITALS (13 sets, daily range): BP systolic 102–116; BP diastolic 60–80
[2018-12-20] MEDS: INSULIN HUMULIN R 100 UNIT/ML 3ML SQ SCH ×7 (01:03→21:00)
[2018-12-20 04:03] LABS: HEMATOCRIT 45.2 % (42-54); MEAN CORPUSCULAR HGB CONC 33.6 g/dL (32.0-36.0); MEAN CORPUSCULAR VOLUME 86.3 fL (79-99); NUCLEATED RED BLOOD CELLS 0.2 % (0.0-0.19); PLATELET COUNT (AUTO) 186 K/uL (130-400); RED BLOOD CELL COUNT(AUTO) 5.24 MIL/uL (4.50-6.20); WHITE BLOOD COUNT (AUTO) 7.6 K/uL (4.8-10.8)
[2018-12-20 04:16] LABS: CREATININE 0.7 mg/dL (0.5-1.5); MAGNESIUM 1.8 mg/dL (1.80-2.40); POTASSIUM 4.1 mmol/L (3.5-5.1)
[2018-12-20] MEDS: LEVOTHYROXINE 100 MCG VIAL IV SCH (06:25)
[2018-12-20] MEDS: LACTOBACILLUS RHAMNOSUS GG 1 EACH CAP.SPRINK PO SCH ×3 (08:56→21:00)
[2018-12-20] MEDS: FAMOTIDINE/PF 20 MG/2 ML VIAL IV SCH ×2 (08:56→21:00)
[2018-12-20] MEDS: LOSARTAN 50 MG TABLET PO SCH (08:56)
--- NOTE | 2018-12-20 09:00 | NUR ---
Dr. Booker notified of patients condition and labs. Ordered for patient to be transferred to medical surgical floor
[2018-12-20] MEDS: INSULIN GLARGINE 100 UNITS/ML 10 ML VIAL SQ SCH ×2 (09:01→21:00)
[2018-12-20] MEDS: MAGNESIUM 2GM PREMIX 50ML 50 ML IV PRN (09:55)
--- NOTE | 2018-12-20 11:23 | NUR ---
Report given to nurse for room 420 where patient is going to transferred to
[2018-12-20] MEDS ORDERED: BENZOCAINE/MENTH/CETYLPYRD CL 1 EACH LOZENGE MM PRN (16:45)
[2018-12-21 03:51] VITALS: BP 114/69
[2018-12-21] MEDS: LEVOTHYROXINE 100 MCG VIAL IV SCH (06:30)
[2018-12-21 07:08] LABS: CREATININE 0.6 mg/dL (0.5-1.5); POTASSIUM 3.7 mmol/L (3.5-5.1)
[2018-12-21] MEDS: INSULIN HUMULIN R 100 UNIT/ML 3ML SQ SCH ×5 (07:21→21:23)
[2018-12-21 07:30] VITALS: BP 105/76
[2018-12-21 08:35] LABS: HEMATOCRIT 42.3 % (42-54); MEAN CORPUSCULAR HEMOGLOBIN 29.8 pg (27.0-33.0); MEAN CORPUSCULAR HGB CONC 34.5 g/dL (32.0-36.0); MEAN CORPUSCULAR VOLUME 86.4 fL (79-99); NUCLEATED RED BLOOD CELLS 0.2 % (0.0-0.19); PLATELET COUNT (AUTO) 158 K/uL (130-400); RED CELL DISTRIBUTION WIDTH 12.9 % (11.0-15.5)
[2018-12-21 08:43] LABS: BAND NEUTROPHILS % (MANUAL) 1 % (0-2); EOSINOPHILS % (MANUAL) 3 % (1-6); LYMPHOCYTES % (MANUAL) 32 % (22-44); MONOCYTES % (MANUAL) 22 % (2-9); REACTIVE LYMPHOCYTES 7 % (0-0); SEGMENTED NEUTROPHILS % 35 % (40-70)
[2018-12-21 08:44] LABS: PLATELET MORPHOLOGY COMMENT ADEQUATE
[2018-12-21] MEDS: FAMOTIDINE/PF 20 MG/2 ML VIAL IV SCH ×2 (08:45→21:26)
[2018-12-21] MEDS: LACTOBACILLUS RHAMNOSUS GG 1 EACH CAP.SPRINK PO SCH ×3 (08:45→21:26)
[2018-12-21] MEDS: LOSARTAN 50 MG TABLET PO SCH (08:48)
[2018-12-21] MEDS: INSULIN GLARGINE 100 UNITS/ML 10 ML VIAL SQ SCH ×2 (08:56→20:38)
[2018-12-21 11:00] VITALS: BP 129/79
[2018-12-21 16:00] VITALS: BP 111/62
[2018-12-21] MEDS: INSULIN LISPRO 100 UNIT/ML 3ML SQ SCH ×2 (16:57→18:32)
[2018-12-21 20:02] VITALS: BP 121/80
[2018-12-21 23:45] VITALS: BP 126/61
[2018-12-22 03:50] VITALS: BP 139/79
[2018-12-22 05:21] LABS: BASOPHILS % (AUTO) 0.5 % (0.0-5.0); EOSINOPHILS % (AUTO) 2.2 % (0.0-8.0); HEMATOCRIT 40.9 % (42-54); LYMPHOCYTES % (AUTO) 47.5 % (21.0-51.0); MEAN CORPUSCULAR HEMOGLOBIN 29.5 pg (27.0-33.0); MEAN CORPUSCULAR HGB CONC 34.5 g/dL (32.0-36.0); MEAN CORPUSCULAR VOLUME 85.5 fL (79-99); MONOCYTES % (AUTO) 12.7 % (3.0-13.0); NEUTROPHILS % (AUTO) 37.1 % (40.0-77.0); PLATELET COUNT (AUTO) 159 K/uL (130-400); RED BLOOD CELL COUNT(AUTO) 4.78 MIL/uL (4.50-6.20); WHITE BLOOD COUNT (AUTO) 4.6 K/uL (4.8-10.8)
[2018-12-22 05:34] LABS: CREATININE 0.6 mg/dL (0.5-1.5); POTASSIUM 3.6 mmol/L (3.5-5.1)
[2018-12-22] MEDS: INSULIN LISPRO 100 UNIT/ML 3ML SQ SCH ×3 (06:42→17:21)
[2018-12-22] MEDS: LEVOTHYROXINE 100 MCG VIAL IV SCH (06:49)
[2018-12-22 07:30] VITALS: BP 131/72
[2018-12-22] MEDS: LACTOBACILLUS RHAMNOSUS GG 1 EACH CAP.SPRINK PO SCH ×2 (08:41→15:05)
[2018-12-22] MEDS: FAMOTIDINE/PF 20 MG/2 ML VIAL IV SCH (08:41)
[2018-12-22] MEDS: INSULIN HUMULIN R 100 UNIT/ML 3ML SQ SCH ×3 (08:53→17:21)
[2018-12-22] MEDS: INSULIN GLARGINE 100 UNITS/ML 10 ML VIAL SQ SCH (08:53)
[2018-12-22 11:00] VITALS: BP 109/73
--- NOTE | 2018-12-22 13:00 | NUR ---
RD UPDATE Multiple consults for Diet Education received. Diabetes Diet education provided 12/19/18. Pt demonstrated detailed knowledge on dietary recommendations. Pt also reports Hx of DM [id number] and checks in with MD regularly. Consult for sliding scale insulin received; RD does not educate on medication. Diet education provided. No other nutrition concerns at this time.
--- NOTE | 2018-12-22 15:47 | NUR ---
PT UPDATE Pt expresses he will not be able to get his new insulin prescription today since today is Sunday and his pharmacy closes at 5pm. Pt requested to stay till his last insulin coverage before leaving. Nursing will continue to monitor.
[2018-12-22 16:00] VITALS: BP 129/70
--- NOTE | 2018-12-22 19:15 | NUR ---
DISCHARGE-PATIENT'S RIDE IS HERE TO TAKE PATIENT HOME. DAVID PICC LINE REMOVED AND DISCHARGE INSTRUCTIONS GIVEN BY WALLY DOTSON. PATIENT AAOX3, NO ACUTE DISTRESS NOTED.
== END 2018-12-22 19:30 | disposition home or self-care (01) | DRG 371 ==
LOC: EDH 16:28 → EDHIP 22:04 → OBSVTOIN 22:04 → 3CH 12-14 00:23 → 2BH 12-14 03:27 → 4CH 12-20 11:55 → 3BH 12-21 00:16
PROVIDERS: ADMIT Internal Medicine; ATTEND Internal Medicine
PROC: 02HV33Z Insertion of Infusion Device into Superior Vena Cava, Percutaneous Approach (ICD-10-PCS; principal; 2018-12-13)
PROC: 5A09357 Assistance with Respiratory Ventilation, Less than 24 Consecutive Hours, Continuous Positive Airway Pressure (ICD-10-PCS; 2018-12-14)
PROC: 5A09357 Assistance with Respiratory Ventilation, Less than 24 Consecutive Hours, Continuous Positive Airway Pressure (ICD-10-PCS; 2018-12-15)
PROC: 5A09357 Assistance with Respiratory Ventilation, Less than 24 Consecutive Hours, Continuous Positive Airway Pressure (ICD-10-PCS; 2018-12-16)
PROC: 5A09357 Assistance with Respiratory Ventilation, Less than 24 Consecutive Hours, Continuous Positive Airway Pressure (ICD-10-PCS; 2018-12-17)
DX: A04.9 Bacterial intestinal infection, unspecified (principal); E11.10 Type 2 diabetes mellitus with ketoacidosis without coma; E66.01 Morbid (severe) obesity due to excess calories; K59.00 Constipation, unspecified; K76.0 Fatty (change of) liver, not elsewhere classified; G47.33 Obstructive sleep apnea (adult) (pediatric); I10 Essential (primary) hypertension; E03.9 Hypothyroidism, unspecified; Z68.35 Body mass index [BMI] 35.0-35.9, adult; Z79.4 Long term (current) use of insulin; Z83.3 Family history of diabetes mellitus
CPT/HCPCS: 36415; 36600; 70450; 71045; 74176; 80048; 80053; 80305; 80400; 81001; 82010; 82088; 82435; 82530; 82533; 82550; 82607; 82803; 82947; 82948; 83036; 83605; 83690; 83735; 83874; 83930; 83935; 84100; 84132; 84146; 84295; 84443; 84484; 85018; 85025; 85027; 85610; 85730; 86038; 86215; 86235; 86376; 86800; 87040; 87804; 87880; 93005; 94660; 97039; 99291; A4344; C1751; C1894; G0378; G0480; G0481; J1815; J1940; J2405; J2543; J3475; J3480; J3490; J7030; J7070; J7120

== ENCOUNTER 2022-09-30 09:48 | Emergency (ER) | payer OTHER ==
[~2022-09-30] VITALS: Ht 180.3 cm; Wt 127.6 kg
[~2022-09-30 09:48] MED LIST: ICOS1CAP PO; LEVO25TA54 PO
[2022-09-30 09:49] VITALS: BP 165/98; PULSE 100; RESP 20
[2022-09-30 11:22] LABS: BASOPHILS # (AUTO) 0.05 K/uL (0.00-0.20); BASOPHILS % (AUTO) 0.7 % (0.0-5.0); EOSINOPHILS # (AUTO) 0.06 K/uL (0.00-0.70); EOSINOPHILS % (AUTO) 0.8 % (0.0-8.0); HEMATOCRIT 48.8 % (42-54); IMMATURE GRANULOCYTE ABSOLUTE 0.19 K/uL (0-1); LYMPHOCYTES # (AUTO) 2.3 K/uL (1.0-4.8); LYMPHOCYTES % (AUTO) 31.7 % (21.0-51.0); MEAN CORPUSCULAR HEMOGLOBIN 28.9 pg (27.0-33.0); MEAN CORPUSCULAR VOLUME 82.6 fL (79-99); MONOCYTES # (AUTO) 0.7 K/uL (0.1-1.0); MONOCYTES % (AUTO) 10.1 % (3.0-13.0); NEUTROPHILS % (AUTO) 54.1 % (40.0-77.0); PLATELET COUNT (AUTO) 170 K/uL (130-400); RED BLOOD CELL COUNT(AUTO) 5.91 MIL/uL (4.50-6.20); RED CELL DISTRIBUTION WIDTH 15.4 % (11.0-15.5); WHITE BLOOD COUNT (AUTO) 7.3 K/uL (4.8-10.8)
[2022-09-30] MEDS ORDERED: LACT10SO9 PO (11:37)
[2022-09-30 12:19] LABS: ALBUMIN 3.6 g/dL (3.5-5.0); BILIRUBIN,TOTAL 0.5 mg/dL (0.2-1.0); CREATININE 1.1 mg/dL (0.5-1.5); TOTAL PROTEIN, SERUM 7.6 g/dL (6.0-8.3)
[2022-09-30 12:59] LABS: APPEARANCE,URINE CLEAR (CLEAR); BILIRUBIN,URINE NEGATIVE (NEGATIVE); COLOR,URINE COLORLESS (YELLOW); GLUCOSE, URINE (UA) >=1000 mg/dL (NEGATIVE); KETONES,URINE 150 mg/dL (NEGATIVE); LEUKOCYTE ESTERASE ,URINE NEGATIVE Leu/uL (NEGATIVE); NITRATE,URINE NEGATIVE (NEGATIVE); OCCULT BLOOD,URINE NEGATIVE (NEGATIVE); PH,URINE 5.5 (5.0-8.0); PROTEIN,URINE 30 mg/dL (NEGATIVE); UROBILINOGEN,URINE 0.2 mg/dL (0.2-1.0)
[2022-09-30 13:01] LABS: ADD UA MICROSCOPIC YES
[2022-09-30 13:17] LABS: BACTERIA,URINE RARE /HPF (None Seen); MUCUS,URINE RARE LPF (None Seen); RBC,URINE 0-1 /HPF (0-1); WBC,URINE 0-1 /HPF (0-1)
== END 2022-09-30 12:33 | disposition home or self-care (01) ==
LOC: EDH 09:48
DX: K59.00 Constipation, unspecified (principal); I10 Essential (primary) hypertension; E11.9 Type 2 diabetes mellitus without complications; Z79.899 Other long term (current) drug therapy
CPT/HCPCS: 36415; 74021; 80053; 81001; 82010; 82948; 83605; 83690; 85025

== ENCOUNTER 2024-06-10 15:09 | Emergency (ER) | payer BC, OTHER ==
[~2024-06-10] VITALS: Ht 180.3 cm; Wt 133.8 kg
[~2024-06-10 15:09] MED LIST changes: +LACT10SO9 PO
[2024-06-10 15:13] VITALS: BP 145/91; PULSE 87; RESP 18; TEMP 98.1
[2024-06-10] MEDS ORDERED: ondanSETRON ODT 4MG TAB SL ONE (15:30)
[2024-06-10] MEDS ORDERED: 0.9%NACL 1000ML 1,000 ML IV ONE (15:30)
[2024-06-10 15:45] LABS: BASOPHILS # (AUTO) 0.04 K/uL (0.00-0.20); BASOPHILS % (AUTO) 0.4 % (0.0-5.0); EOSINOPHILS # (AUTO) 0.03 K/uL (0.00-0.70); EOSINOPHILS % (AUTO) 0.3 % (0.0-8.0); IMMATURE GRANULOCYTE ABSOLUTE 0.06 K/uL (0-1); LYMPHOCYTES # (AUTO) 2.6 K/uL (1.0-4.8); LYMPHOCYTES % (AUTO) 28.4 % (21.0-51.0); MEAN CORPUSCULAR HEMOGLOBIN 29.1 pg (27.0-33.0); MEAN CORPUSCULAR HGB CONC 33.7 g/dL (32.0-36.0); MEAN CORPUSCULAR VOLUME 86.5 fL (79-99); MONOCYTES # (AUTO) 0.7 K/uL (0.1-1.0); MONOCYTES % (AUTO) 7.4 % (3.0-13.0); NEUTROPHILS # (AUTO) 5.7 K/uL (1.8-7.7); NEUTROPHILS % (AUTO) 62.8 % (40.0-77.0); PLATELET COUNT (AUTO) 209 K/uL (130-400); RED BLOOD CELL COUNT(AUTO) 6.01 MIL/uL (4.50-6.20); RED CELL DISTRIBUTION WIDTH 12.8 % (11.0-15.5); WHITE BLOOD COUNT (AUTO) 9.1 K/uL (4.8-10.8)
[2024-06-10 15:53] LABS: CREATININE 0.9 mg/dL (0.5-1.3)
--- NOTE | 2024-06-10 15:58 | NUR ---
pt states he already had tests done at his doctos office and doesn't want any more tests done. pt states he's not signing any more papers or submiting to any more tests. pt requests IV to be removed and states he is leaving. Dr. Vences was informed. PIV was removed. Site was bandaged with coban.
--- NOTE | 2024-06-10 16:30 | ERN ---
General Chief Complaint: Dizzy/Light Headed Stated Complaint: DIZZINESS Time Seen by MD: 15:23 Time Seen by Midlevel: 15:23 Source: patient History of Present Illness Initial Comments 28-year-old male who presents to the emergency department due to dizziness onset two days. Patient reports he was at work when he initiated feeling weak, dizziness, and nausea but denies any headache, chest pain, shortness of breath, abdominal pain or further associated symptoms. Patient states he is currently taking vertigo medication. PMHx DM, HTN Allergies: Coded Allergies: No Known Allergies (Verified Allergy, Unknown, 12/13/18) Home Meds Active Scripts Lactulose (Lactulose) 20 Gm/30 Ml Solution, 20 GM PO DAILY for constipation for 3 Days, #90 ML Prov:ESCOBARROLANDO SPIN TABLE OPERATOR 09/30/22 Reported Medications Icosapent Ethyl (Vascepa) 1 Gm Capsule, 2 GM PO BID, CAP 12/17/18 Levothyroxine Sodium (Levothyroxine Sodium) 25 Mcg Tablet, 25 MCG PO DAILY, TAB 12/14/18 Past Medical History Past Medical History: Diabetes-Type I, Diabetes-Type II, Hypertension Past Surgical History: None ROS Dictation Constitutional: Positive for dizziness, generalized weakness Negative for fever, chills, and weight loss Eyes: Negative for injury, pain,redness, and discharge ENT: Negative for injury,pain or swelling Cardiovascular: Negative for chest pain, palpitations, and edema Respiratory: Negative for shortness of breath, cough, and wheezing, Abdomen/GI: Positive for nausea Negative for abdominal pain, vomiting, diarrhea, and constipation Back: Negative for injury and pain : Negative for painful urination, bleeding or discharge MS/Extremity: Negative for injury and deformity Skin: Negative for rash, and discoloration Neuro: Negative for headache, weakness, numbness, tingling, and seizure Psych: Negative for suicide ideation, homicidal ideation, and hallucinations Physical Exam Physical Exam Dictation General: awake, alert, no acute distress Head/Face: Normocephalic, atraumatic Eyes: PERRL, EOMI, normal conjunctiva ENT: oral cavity clear, oral mucosa moist Neck: Supple, normal range of motion Cardiovascular: RRR, normal S1/S2 Respiratory: CTAB, no respiratory distress, no rales or wheezes Abdomen: Soft, non-tender, non-distended, no guarding or rebound. Skin: Warm, dry, normal turgor, no rash MS/Extremity: Pulses equal, no cyanosis, neurovascular intact, FROM Neuro: COAx4, GCS 15, strength 5/5, CN 2-12 intact, normal cerebellar exam, normal gait Psych: Normal behavior, mood, and affect normal Results Laboratory and Microbiology Lab and Micro Result Laboratory Tests Test 06/10/24 15:37 White Blood Count 9.1 K/uL (4.8-10.8) Red Blood Count 6.01 MIL/uL (4.50-6.20) Hemoglobin 17.5 g/dL (14.0-18.0) Hematocrit 52.0 % (42-54) Mean Corpuscular Volume 86.5 fL (79-99) Mean Corpuscular Hemoglobin 29.1 pg (27.0-33.0) Mean Corpuscular Hemoglobin Concent 33.7 g/dL (32.0-36.0) Red Cell Distribution Width 12.8 % (11.0-15.5) Platelet Count 209 K/uL (130-400) Mean Platelet Volume 12.4 fL (7.5-10.5) H Immature Granulocyte % (Auto) 0.7 % (0-1) Neutrophils (%) (Auto) 62.8 % (40.0-77.0) Lymphocytes (%) (Auto) 28.4 % (21.0-51.0) Monocytes (%) (Auto) 7.4 % (3.0-13.0) Eosinophils (%) (Auto) 0.3 % (0.0-8.0) Basophils (%) (Auto) 0.4 % (0.0-5.0) Neutrophils # (Auto) 5.7 K/uL (1.8-7.7) Lymphocytes # (Auto) 2.6 K/uL (1.0-4.8) Monocytes # (Auto) 0.7 K/uL (0.1-1.0) Eosinophils # (Auto) 0.03 K/uL (0.00-0.70) Basophils # (Auto) 0.04 K/uL (0.00-0.20) Absolute Immature Granulocyte (auto 0.06 K/uL (0-1) Nucleated Red Blood Cells 0.0 % (0.0-0.19) Sodium Level 138 mmol/L (136-145) Potassium Level 4.0 mmol/L (3.5-5.1) Chloride Level 101 mmol/L (101-111) Carbon Dioxide Level 28 mmol/L (21-32) Blood Urea Nitrogen 15 mg/dL (7-18) Creatinine 0.9 mg/dL (0.5-1.3) Glomerular Filtration Rate Calc 118 mL/min (>90) Random Glucose 239 mg/dL (70-105) H Total Calcium 9.4 mg/dL (8.5-10.1) Total Creatine Kinase 69 U/L (21-232) # Troponin I High Sensitivity < 4 ng/L (4-75) L Labs Reviewed?: Yes MDM MDM: Differential diagnosis: Vertigo, dehydration, electrolyte imbalance Rationale: 28-year-old male who presents to the emergency department due to dizziness onset two days. Patient reports he was at work when he initiated feeling weak, dizziness, and nausea but denies any headache, chest pain, shortness of breath, abdominal pain or further associated symptoms. Patient states he is currently taking vertigo medication. PMHx DM, HTN Patient decided to elope from the ED after blood was drawn. Patient refused EKG. ED Course Orders Procedure Category Date Status Time Cbc With Differential LAB 06/10/24 Complete 15:24 Basic Metabolic Panel LAB 06/10/24 Complete 15:24 Urinalysis LAB 06/10/24 Logged W/Microscopic 15:24 Troponin I High LAB 06/10/24 Complete Sensitivity 15:24 12 Lead Ekg Tracing- EKG 06/10/24 Logged Technical 15:24 Creatine Kinase, Total LAB 06/10/24 Complete 15:24 0.9%Nacl 1000ml (Ns PHA 06/10/24 Complete 1000ml) 15:30 Ondansetron Odt 4mg PHA 06/10/24 Complete Tab (Zofran 4mg Odt) 15:30 Current Medications Medications (Trade) Dose Ordered Sig/Michelle Route PRN Reason Start Time Stop Time Status Last Admin Dose Admin Ondansetron HCl (zoFRAN 4MG ODT) 4 mg ONCE ONCE SL 06/10/24 15:30 06/10/24 15:31 DC Sodium Chloride 1,000 ml @ 0 mls/hr ONCE ONCE IV 06/10/24 15:30 06/10/24 15:31 DC Vital Signs Date Time Temp Pulse Resp B/P (MAP) Pulse Ox O2 Delivery O2 Flow Rate FiO2 06/10/24 15:13 98.1 87 18 145/91 97 DX & DISP Disposition: Other(Comment) (Eloped) Departure Impression: Primary Impression: Eloped from emergency department Condition: Stable Referrals: SELF,REFERRAL (PCP) I performed the substantive portion of the visit. I have reviewed and personally made and approve the management plan that is documented in the notes by myself or the JON. I acknowledge full responsibility for the patient's management plan. PERLA AYALA Jun 10, 2024 16:30
== END 2024-06-10 16:16 | disposition left against medical advice (07) ==
LOC: EDH 15:09
DX: R42 Dizziness and giddiness (principal); R11.0 Nausea; E11.9 Type 2 diabetes mellitus without complications; I10 Essential (primary) hypertension; Z79.890 Hormone replacement therapy; Z79.899 Other long term (current) drug therapy
CPT/HCPCS: 36415; 80048; 82550; 84484; 85025; 99283